=== PATIENT | female | born 1955 | race Caucasian/White ===

== ENCOUNTER 2019-02-25 11:34 | Emergency (ER) | payer OTHER ==
--- NOTE | 2019-02-25 12:14 | EDM.PDOC ---
ED HPI GENERAL MEDICAL PROBLEM - General Chief Complaint: Lower Extremity Injury/Pain Stated Complaint: LEFT FOOT PAIN MAYBE WHEN BOWLING Time Seen by Provider: 02/25/19 12:10 Source of Information: Reports: Patient, Family, RN Notes Reviewed History Limitations: Reports: No Limitations - History of Present Illness INITIAL COMMENTS - FREE TEXT/NARRATIVE: 63-year-old female presents emergency department today complaint of pain in her left foot, she is unsure of the mechanism of injury may have done it while bowling. Pain is greatest top of the foot and lateral aspect. Left Ankle Pain Score (Numeric/FACES): 3 - Related Data Allergies Allergy/AdvReac Type Severity Reaction Status Date / Time tetracycline Allergy Nausea and Verified 02/25/19 12:00 Vomiting Home Meds: Home Meds NK [No Known Home Meds] 02/25/19 [History] Past Medical History Dermatologic History: Reports: Benign Melanoma - Past Surgical History GI Surgical History: Reports: Cholecystectomy Musculoskeletal Surgical History: Reports: Knee Replacement Social & Family History - Tobacco Use Smoking Status *Q: Never Smoker Second Hand Smoke Exposure: No - Caffeine Use Caffeine Use: Reports: Coffee - Recreational Drug Use Recreational Drug Use: No Review of Systems - Review of Systems Review Of Systems: See Below Musculoskeletal: Reports: Foot Pain Skin: Reports: Other (Edema) ED EXAM, GENERAL - Physical Exam Exam: See Below Free Text/Narrative:: Examination of the left foot I do appreciate some edema over her metatarsals 34 and 5, it is tender to this area as well is no erythema pedal pulses +2 no tenderness to the ankle full range of motion of all digits Course - Vital Signs Last Recorded V/S: Last Vital Signs Temp 98.1 F 02/25/19 12:01 Pulse 76 02/25/19 12:01 Resp 16 02/25/19 12:01 BP 131/88 02/25/19 12:01 Pulse Ox 97 02/25/19 12:01 - Orders/Labs/Meds Orders: Active Orders 24 hr Category Date Time Status DME for Discharge [COMM] Per Unit Routine Oth 02/25/19 12:44 Ordered Departure - Departure Time of Disposition: 12:46 Disposition: Home, Self-Care 01 Condition: Fair Clinical Impression: Left foot pain - Discharge Information Referrals: PCP,None [Primary Care Provider] - Forms: ED Department Discharge Additional Instructions: Use Tylenol or Motrin as needed for pain control, continue to use the cam walker boot for comfort, follow-up with your primary care in the next 3-5 days for further evaluation - My Orders Last 24 Hours: My Active Orders 02/25/19 12:44 DME for Discharge [COMM] Per Unit Routine - Assessment/Plan Last 24 Hours: My Active Orders 02/25/19 12:44 DME for Discharge [COMM] Per Unit Routine Plan: Assessment Acuity = acute Site and laterality = left foot pain Etiology = unknown Manifestations = none Location of injury = Home Lab values = x-ray reveals no acute process Plan She is placed in a cam walker boot will follow-up with primary in the next 3-5 days for further evaluation This note was dictated using [employer] voice recognition software please call with any questions on syntax or grammar.
--- NOTE | 2019-02-25 12:38 | CRLCR ---
INDICATION: Pain after twisting injury. TECHNIQUE: Three views left foot. 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 No other bone finding of significance. Anatomic alignment. No significant degenerative or inflammatory change appreciated. Small os calcis spur incidentally noted. Dictated by Chicho Calles MD @ Feb 25 2019 12:36PM Signed by Dr. Chicho Calles @ Feb 25 2019 12:37PM
== END 2019-02-25 12:57 | disposition home or self-care (01) ==
LOC: JP.ED 11:34
DX: M79.672 Pain in left foot (principal); Z88.1 Allergy status to other antibiotic agents
CPT/HCPCS: 73630-LT; 99283-25